=== PATIENT | female | born 1955 | race Caucasian/White ===

== ENCOUNTER → 2016-10-29 | Outpatient (CLI) | payer OTHER | END | disposition home or self-care (01) | LOC: CFH 10:34 | PROVIDERS: ATTEND Obstetrics & Gynecology Gynecology | DX: Z12.31 Encounter for screening mammogram for malignant neoplasm of breast (principal); Z80.3 Family history of malignant neoplasm of breast | CPT/HCPCS: G0202 ==

== ENCOUNTER → 2016-11-08 | Outpatient (CLI) | payer OTHER | END | disposition home or self-care (01) | LOC: CFH 14:21 | PROVIDERS: ATTEND Obstetrics & Gynecology Gynecology | DX: R92.0 Mammographic microcalcification found on diagnostic imaging of breast (principal) | CPT/HCPCS: G0206-LT ==

== ENCOUNTER → 2016-11-11 | Outpatient (CLI) | payer OTHER ==
[~2016-11-11] MED LIST: LIDOCAINE 1%, 20ML ONE; SODIUM BICARBONATE 4.2%, 5ML ONE
== END | disposition home or self-care (01) ==
LOC: CFH 12:43
PROVIDERS: ATTEND Obstetrics & Gynecology Gynecology
DX: R92.0 Mammographic microcalcification found on diagnostic imaging of breast (principal)
CPT/HCPCS: 19081; 88305; 88341; 88342; G0206; J3490; G0461

== ENCOUNTER 2016-12-27 07:41 | Day surgery (SDC) | payer OTHER ==
[~2016-12-27] VITALS: Ht 157.5 cm; Wt 70.1 kg
[~2016-12-27 07:41] MED LIST changes: +BEPO10DR3 EACHEYE; +BUPIVACAINE/PF-EPI 0.5% 1:200K ONE; +CETI10TA18 PO; +ESTR1TAB12 PO; +HYDR25TA6 PO; +LATA2.5D3 EACHEYE; +LEVO125T5 PO; -LIDOCAINE 1%, 20ML ONE; -SODIUM BICARBONATE 4.2%, 5ML ONE
[2016-12-27] MEDS ORDERED: LIDOCAINE 1%, 20ML ONE (09:00)
[2016-12-27] MEDS ORDERED: SODIUM BICARBONATE 4.2%, 5ML ONE (09:00)
[2016-12-27] MEDS ORDERED: LACTATED RINGERS 1,000 ML IV SCH (09:11)
[2016-12-27] MEDS ORDERED: MIDAZOLAM 1 MG/ML, 2ML ONE (09:34)
[2016-12-27] MEDS ORDERED: FENTANYL PF 100 MCG/2ML ONE (09:34)
[2016-12-27 09:38] VITALS: BP 133/81
[2016-12-27] MEDS ORDERED: ONDANSETRON 2MG/ML, 2ML ONE (10:13)
[2016-12-27] MEDS ORDERED: CLINDAMYCIN 150 MG/ML, 6ML ONE (10:13)
[2016-12-27] MEDS ORDERED: DEXAMETHASONE 4 MG/ML, 1ML ONE (10:13)
[2016-12-27] MEDS ORDERED: PROPOFOL 10 MG/ML, 20ML ONE (10:13)
[2016-12-27] MEDS ORDERED: HYDROmorphone 1 MG/ML, 1ML IV PRN (11:00)
[2016-12-27] MEDS ORDERED: MIDAZOLAM 1 MG/ML, 2ML IV PRN (11:00)
[2016-12-27] MEDS ORDERED: HYDROcodone/APAP 7.5-325MG/15ML UDC PO PRN (11:00)
[2016-12-27] MEDS ORDERED: LABETALOL 5MG/ML, 20ML IV PRN (11:00)
[2016-12-27] MEDS ORDERED: FENTANYL PF 100 MCG/2ML IV PRN (11:00)
[2016-12-27] MEDS ORDERED: hydrALAzine 20 MG/ML, 1ML IV PRN (11:00)
[2016-12-27] MEDS ORDERED: ACETAMINOPHEN 325 MG TABLET PO PRN (11:00)
[2016-12-27] MEDS ORDERED: ONDANSETRON 2MG/ML, 2ML IVPush PRN (11:00)
[2016-12-27] MEDS ORDERED: PROMETHAZINE 25 MG/ML, 1ML IV PRN (11:00)
[2016-12-27] MEDS ORDERED: MEPERIDINE/PF 25MG/0.5ML IVPush PRN (11:00)
[2016-12-27] MEDS ORDERED: OXYcodone 5 MG/5 ML ORAL.SOL UDC PO PRN (11:00)
[2016-12-27] MEDS ORDERED: EPHEDRINE 50 MG/ML, 1ML IVPush PRN (11:00)
[2016-12-27] MEDS ORDERED: ACETAMINOPHEN 650 MG/20.3 ML UDC ONE (11:06)
== END 2016-12-27 13:00 | disposition home or self-care (01) ==
LOC: CFH 07:41 → EDSTATUS 09:30 → OUT 13:00
PROVIDERS: ATTEND Surgery
DX: D05.12 Intraductal carcinoma in situ of left breast (principal); I10 Essential (primary) hypertension; Z91.018 Allergy to other foods; Z86.39 Personal history of other endocrine, nutritional and metabolic disease; Z72.89 Other problems related to lifestyle; Z88.0 Allergy status to penicillin; Z88.8 Allergy status to other drugs, medicaments and biological substances; Z91.040 Latex allergy status
CPT/HCPCS: 19281; 19301; 76098; 88305; 88307; J1100; J2250; J2405; J2704; J3010; J3490; J7120

== ENCOUNTER → 2017-02-21 | Outpatient (CLI) | payer OTHER ==
[~2017-02-21] MED LIST changes: -BUPIVACAINE/PF-EPI 0.5% 1:200K ONE
== END | disposition home or self-care (01) ==
LOC: ROC 14:10
PROVIDERS: ATTEND Radiology Radiation Oncology
DX: D05.90 Unspecified type of carcinoma in situ of unspecified breast (principal)
CPT/HCPCS: 99214; G0463

== ENCOUNTER → 2017-04-14 | Outpatient (CLI) | payer OTHER | END | disposition home or self-care (01) | LOC: ROC 08:18 | PROVIDERS: ATTEND Radiology Radiation Oncology | DX: D05.12 Intraductal carcinoma in situ of left breast (principal) | CPT/HCPCS: 99213; G0463 ==

== ENCOUNTER → 2017-07-20 | Outpatient (CLI) | payer OTHER | LOC: CFH 08:38 | PROVIDERS: ATTEND Surgery | DX: Z01.818 Encounter for other preprocedural examination (principal); R92.8 Other abnormal and inconclusive findings on diagnostic imaging of breast; Z86.000 Personal history of in-situ neoplasm of breast | CPT/HCPCS: 77066 ==

== ENCOUNTER → 2017-11-11 | Outpatient (CLI) | payer OTHER | END | disposition home or self-care (01) | LOC: ROC 07:52 | PROVIDERS: ATTEND Radiology Radiation Oncology | DX: D05.12 Intraductal carcinoma in situ of left breast (principal) | CPT/HCPCS: 99213; G0463 ==

== ENCOUNTER → 2018-07-21 | Outpatient (CLI) | payer OTHER | END | disposition home or self-care (01) | LOC: CFH 09:00 | PROVIDERS: ATTEND Radiology Radiation Oncology | DX: Z12.31 Encounter for screening mammogram for malignant neoplasm of breast (principal) | CPT/HCPCS: 77063; 77067 ==

== ENCOUNTER → 2019-09-26 | Outpatient (CLI) | payer OTHER ==
[~2019-09-26] MED LIST changes: +ESTR-99 PO; -ESTR1TAB12 PO
== END | disposition home or self-care (01) ==
LOC: CFH 09:41
PROVIDERS: ATTEND Surgery
DX: R92.2 Inconclusive mammogram (principal); Z85.3 Personal history of malignant neoplasm of breast
CPT/HCPCS: 77066; G0279

== ENCOUNTER 2020-07-25 10:25 | Outpatient (CLI) | payer OTHER ==
[~2020-07-25 10:25] MED LIST changes: -LATA2.5D3 EACHEYE; +LATA2.5D4 EACHEYE
== END 2020-07-25 23:59 | disposition home or self-care (01) ==
LOC: CFH 10:25
PROVIDERS: ATTEND Pathology Hematology
DX: Z12.31 Encounter for screening mammogram for malignant neoplasm of breast (principal); C50.112 Malignant neoplasm of central portion of left female breast
CPT/HCPCS: 77063; 77067